=== PATIENT | male | born 1965 | race Caucasian/White ===

== ENCOUNTER → 2021-08-01 14:05 | Outpatient (CLI) | payer BC, SELFPAY | PROVIDERS: Visit Provider Nurse Practitioner | DX: U07.1 COVID-19 (principal) | CPT/HCPCS: C9803; U0003; U0005 ==

== ENCOUNTER → 2022-02-01 17:18 | Outpatient (CLI) | payer BC, SELFPAY ==
[2022-02-01 18:19] LABS: Basophils # 0.1 K/mm3 (0-0.2); Basophils % 1.5 % (0.1-2.0); Eosinophils # 0.3 K/mm3 (0.0-0.4); Eosinophils % 3.6 % (0.1-12.0); Hematocrit 46.4 % (42.0-52.0); Hemoglobin 15.2 g/dL (14.1-18.0); Lymphocytes # 1.7 K/mm3 (0.7-4.5); Lymphocytes % 25.2 % (10-50); Mean Corpuscular HGB Conc 32.8 g/dL (31.8-35.4); Mean Corpuscular Volume 91.5 fl (80-94); Mean Platelet Volume 8.3 fl (7.4-10.4); Monocytes # 0.5 K/mm3 (0.1-1.0); Monocytes % 7.9 % (1.7-9.3); Neutrophils # 4.3 K/mm3 (1.8-7.8); Neutrophils % 61.9 % (37.0-80.0); Platelet Count 255 K/mm3 (142-424); Red Blood Count 5.07 M/mm3 (4.60-6.20); White Blood Count 6.9 K/mm3 (4.8-10.8)
[2022-02-01 19:04] LABS: Erythrocyte Sedimentation Rate 14 mm/hr (0-20)
[2022-02-01 19:05] LABS: Anion Gap 10.6 mEq/L (5-15); Blood Urea Nitrogen 19 mg/dl (9-20); Calcium 8.9 mg/dl (8.4-10.2); Carbon Dioxide 26 mmol/L (22.0-30.0); Chloride 105 mmol/L (98-107); Estimated Glomerular Filt Rate 62 ml/min (>60); GFR (African American) 75 ML/MIN (>60); Glucose 75 mg/dl (74-100); Potassium 4.6 mmoL/L (3.5-5.1); Sodium 137 mmol/L (136-145); Uric Acid 7.3 mg/dl (3.5-8.5)
== END ==
PROVIDERS: PCP Internal Medicine; Visit Provider Internal Medicine
DX: M70.21 Olecranon bursitis, right elbow (principal)
CPT/HCPCS: 80048; 84550; 85025; 85651

== ENCOUNTER 2024-02-20 16:51 | Outpatient (CLI) | payer BC, SELFPAY ==
--- NOTE | 2024-02-20 16:54 | XR_ITS ---
PROCEDURE INFORMATION: Exam: XR Right Wrist Exam date and time: 02/20/2024 4:58 PM Age: 58 years old Clinical indication: Pain; Wrist; Right; Additional info: Right wrist pain and stiffness TECHNIQUE: Imaging protocol: Radiologic exam of the right wrist. Views: 3 or more views. COMPARISON: CR XR WRIST RT MIN 3V 02/20/2024 4:58 PM FINDINGS: Bones/joints: Normal. Soft tissues: Normal. IMPRESSION: No acute findings.
--- NOTE | 2024-02-20 16:54 | XR_ITS ---
PROCEDURE INFORMATION: Exam: XR Right Hand Exam date and time: 02/20/2024 4:58 PM Age: 58 years old Clinical indication: Pain; Hand; Right; Additional info: Right hand pain and stiffness TECHNIQUE: Imaging protocol: Radiologic exam of the right hand. Views: 3 or more views. COMPARISON: CR XR WRIST RT MIN 3V 02/20/2024 4:58 PM FINDINGS: Bones/joints: Normal. Soft tissues: Normal. IMPRESSION: No acute findings.
== END 2024-02-20 23:59 | disposition home or self-care (01) ==
LOC: RAD 16:52
PROVIDERS: PCP Internal Medicine; Visit Provider Internal Medicine
DX: M79.641 Pain in right hand (principal); M25.531 Pain in right wrist
CPT/HCPCS: 73110; 73130